=== PATIENT | female | born 1970 | race Caucasian/White ===

== ENCOUNTER 2024-04-29 04:15 | Emergency (ER) | payer MEDICARE, MEDICAID ==
[2024-04-29] VITALS (8 sets, daily range): BP systolic 174–226; BP diastolic 90–109; PULSE 51–78; RESP 16–22; TEMP 36.16956–36.66960; O2SAT 96–98
[~2024-04-29] VITALS: Ht 162.6 cm; Wt 90.0 kg
[2024-04-29] MEDS ORDERED: GLUCAGON,HUMAN RECOMBINANT 1MG/VIAL ONE (04:49)
[2024-04-29] MEDS ORDERED: GLUCAGON,HUMAN RECOMBINANT 1MG/VIAL IV ONE (05:00)
[2024-04-29] MEDS: SODIUM BICARBONATE 8.4% 50MEQ/50ML SYR IV ONE ×2 (05:15→06:17)
[2024-04-29] MEDS ORDERED: FUROSEMIDE 100MG/10ML VIAL IV STA (05:20)
[2024-04-29 05:45] LABS: CHLORIDE 105 mEq/L (98-107); SODIUM 141 mEq/L (136-145)
[2024-04-29 05:46] LABS: BASOPHILS % 1.2 % (0.0-2.0); CALCIUM 10.2 mg/dL (8.7-10.4); CARBON DIOXIDE 27 mEq/L (21-32); DIFFERENTIAL COMMENT 0; EOSINOPHILS % 4.2 % (0.0-5.0); HEMATOCRIT. 28.8 % (36.0-48.0); HEMOGLOBIN. 9.7 g/dL (12.0-16.0); LYMPHOCYTES % 11.8 % (20.0-50.0); MEAN CORPUSCULAR HEMOGLOBIN 34.2 pg (28.0-32.0); MEAN CORPUSCULAR HGB CONC 33.9 g/dL (31.0-37.0); MEAN CORPUSCULAR VOLUME 101.1 fL (81.0-99.0); MEAN PLATELET VOLUME 9.5 fl (7.4-10.4); NEUTROPHILS % 76.8 % (40.0-76.0); PLATELET 122 x1000/uL (130-400); RED BLOOD CELL COUNT 2.84 mill/uL (4.2-5.4)
[2024-04-29 05:51] LABS: GLUCOSE 111 mg/dL (70-105); UREA NITROGEN BLOOD 69 mg/dL (9-23)
[2024-04-29 05:54] LABS: POTASSIUM 7.1 mEq/L (3.5-5.1)
[2024-04-29 05:55] LABS: CREATININE 10.9 mg/dL (0.6-1.0)
[2024-04-29 06:00] LABS: INR 1.2; PARTIAL THROMBOPLASTIN TIME 23.1 sec (23.4-31.0); PROTHROMBIN TIME 12.7 sec (9.6-11.0)
[2024-04-29] MEDS: FUROSEMIDE 40MG/4ML VIAL IV NR (06:16)
[2024-04-29] MEDS: CALCIUM CHLORIDE 1GM/10ML SYR IV ONE (06:16)
[2024-04-29 06:17] LABS: TROPONIN I HIGH SENSITIVITY 65 ng/L (3.0-34)
[2024-04-29] MEDS: DEXTROSE 50% WATER 50ML SYRINGE IV ONE (06:18)
[2024-04-29] MEDS: INSULIN REGULAR (HUMULIN R) 1000UNITS/10ML VIAL IV ONE (06:18)
[2024-04-29] MEDS: CALCIUM GLUCONATE 100MG/ML 10ML VIAL IV ONE (06:25)
[2024-04-29] MEDS: ALBUTEROL (0.083%) 2.5MG/3ML NEB HHN ONE (06:31)
[2024-04-29 07:13] LABS: HEPATITIS B SURFACE AB 31.9 mIU/mL (<10)
[2024-04-29 07:25] LABS: HEPATITIS B SURFACE ANTIGEN NEGATIVE (Negative)
[2024-04-29] MEDS ORDERED: ACETAMINOPHEN 325MG TABLET PO PRN ×2 (08:30)
[2024-04-29] MEDS ORDERED: IPRATROPIUM/ALBUTEROL 0.5-3(2.5)MG/3ML NEB HHN PRN (08:30)
[2024-04-29] MEDS ORDERED: CLONIDINE 0.1MG TABLET PO PRN ×2 (08:30→15:00)
[2024-04-29] MEDS ORDERED: ONDANSETRON HCL 4MG/2ML INJ IV PRN (08:30)
[2024-04-29] MEDS ORDERED: HYDRALAZINE 20MG/ML VIAL IV ONE (08:45)
[2024-04-29] MEDS ORDERED: MAGNESIUM/ALUMINUM HYDROXIDE/SIMETHICONE 30ML UDC PO PRN (09:00)
[2024-04-29] MEDS ORDERED: DOCUSATE SODIUM 100MG CAPSULE PO PRN (09:00)
[2024-04-29] MEDS ORDERED: ENOXAPARIN 40MG/0.4ML SYR SUBCUT SCH (14:30)
[2024-04-29] MEDS ORDERED: PANTOPRAZOLE SODIUM 40 MG/VIAL IV SCH (15:00)
[2024-04-29 15:06] LABS: FOLIC ACID (FOLATE) SERUM 12.01 ng/mL (>5.38); VITAMIN B12 SERUM 498 pg/mL (211-911)
[2024-04-29 17:51] LABS: THYROID STIMULATING HORMONE 2.84 uIU/mL (0.55-4.78)
[2024-04-29 17:52] LABS: T4 FREE 1.17 ng/dL (0.89-1.76)
[2024-04-30] MEDS ORDERED: CLONIDINE 0.2MG TABLET PO PRN (15:01)
== END 2024-04-29 12:00 | disposition left against medical advice (07) ==
LOC: ER 04:15 → EDBEDREQ 06:24 → EDBEDREQSVC 06:24 → EDBEDREQ 06:25 → ER 12:00
DX: E08.9 Diabetes mellitus due to underlying condition without complications (principal); E87.5 Hyperkalemia; D64.9 Anemia, unspecified; I12.0 Hypertensive chronic kidney disease with stage 5 chronic kidney disease or end stage renal disease; N18.6 End stage renal disease; R41.82 Altered mental status, unspecified; Z79.899 Other long term (current) drug therapy; Z90.49 Acquired absence of other specified parts of digestive tract; Z99.2 Dependence on renal dialysis
CPT/HCPCS: 80061; 80048; 82607; 82746; 82962; 83880; 84439; 84443; 85025; 85610; 85730; 87340; 86706; 84484; 36415; 84145; 71045; 70450; 74176; 94640; 93005; 96374; 96375; 96376; 99291; J3490 ×2; J0610; J1940; J1610; J1815; 90935